=== PATIENT | male | born 1945 | race Caucasian/White ===

== ENCOUNTER → 2017-12-05 | Outpatient (CLI) | payer MEDICARE, OTHER ==
[~2017-12-05] MED LIST: ASPIRIN 32325 MG/TAB PO; ASPIRIN 81M81 MG/TA2 PO; ASPIRIN E.C. 8181 MG PO; ATOXIMETIN-B1 CAP PO; CARDURA1 MG PO; CARDURA4 MG PO; CHANTIX0.5 MG PO; CIPRO 500MG TA500 MG PO; FISH OIL1 IU PO; FISH OIL1 POW; FISH OIL1000 MG PO; FLAGYL500 MG PO; FLONASE NASAL S16 GM NS; LEXAPRO 5MG5 MG PO; LIPITOR 10MG10 MG PO; MONODOX100 PO; MULTIPLE VITAMI1 CAP PO; NORVASC 10MG10 MG PO; PLAVIX 75MG TAB75 MG PO; PRINIVIL10 MG PO; PROBIOTIC FORMU1 CAP PO; WELLBUTRIN SR150 M1 PO; WELLBUTRIN100 MG PO
== END ==
LOC: COL.CARD 08:23
DX: R03.0 Elevated blood-pressure reading, without diagnosis of hypertension (principal)

== ENCOUNTER 2018-06-30 09:23 | Emergency (ER) | payer MEDICARE, OTHER ==
[~2018-06-30] VITALS: Ht 180.3 cm; Wt 97.7 kg
[2018-06-30] MEDS ORDERED: FLOMAX 0.40.4 MG/CAP PO (09:36)
[2018-06-30] MEDS ORDERED: AREDS 2 PO (09:38)
[2018-06-30 10:05] VITALS: BP 149/79; PULSE 61; TEMP 97.9
== END 2018-06-30 10:06 | disposition home or self-care (01) ==
LOC: COL.ER 09:23
DX: S81.812A Laceration without foreign body, left lower leg, initial encounter (principal); I10 Essential (primary) hypertension; Z87.891 Personal history of nicotine dependence; Z79.82 Long term (current) use of aspirin; W20.8XXA Other cause of strike by thrown, projected or falling object, initial encounter

== ENCOUNTER → 2018-08-06 | Day surgery (SDC) | payer MEDICARE, OTHER ==
[~2018-08-06] MED LIST changes: +AREDS 2 PO; +FLOMAX 0.40.4 MG/CAP PO
== END ==
LOC: SDCO 07:13
DX: Z02.9 Encounter for administrative examinations, unspecified (principal)

== ENCOUNTER 2018-08-16 05:33 | Day surgery (SDC) | payer MEDICARE, OTHER ==
[~2018-08-16] VITALS: Ht 177.8 cm; Wt 98.5 kg
[2018-08-16] VITALS (12 sets, daily range): BP systolic 119–157; BP diastolic 52–78; PULSE 49–88; TEMP 97.7–98.2
[~2018-08-16 05:33] MED LIST changes: +FLONASEALLERGY NS; +LEXAPRO20 MG PO; +PROTONIX 40MG T40 MG PO
[2018-08-16] MEDS ORDERED: PRINIVIL20 MG PO (05:54)
[2018-08-16 06:18] LABS: BASO % 0.3 % (0.0-2.0); EOS # 0.1 (0.0-0.7); EOS % 1.9 % (0-4.0); GRAN # 1.9 (1.4-6.5); GRAN % 53.5 % (42.2-75.2); HEMATOCRIT 36.3 % (42.0-52.0); HEMOGLOBIN 11.9 g/dl (13.5-18.0); LYMPH # 1.2 (1.2-3.4); LYMPH % 34.1 % (20.0-51.0); MEAN CELL VOLUME 96 fl (80.0-100.0); MEAN CORPUSCULAR HEMOGLOBIN 31 pg (27.0-31.0); MEAN CORPUSCULAR HGB CONC 33 g/dl (33.0-37.0); MEAN PLATELET VOLUME 11.7 fl (7.4-10.4); MONO # 0.3 (0.1-0.6); MONO % 9.4 % (1.7-9.3); PLATELET COUNT 141 K/mm3 (130-400); REDCELL DISTRIBUTION WIDTH-CV 16.4 % (11.5-14.5)
[2018-08-17 04:08] VITALS: BP 128/75; PULSE 63; TEMP 98.2
[2018-08-17 07:22] VITALS: BP 155/84; PULSE 62; TEMP 97.8
[2018-08-17 12:04] VITALS: BP 167/79; PULSE 59; TEMP 97.1
[2018-08-17 12:44] VITALS: BP 148/72
== END 2018-08-17 15:20 | disposition home or self-care (01) ==
LOC: SDCO 05:33 → SURG 08:45 → SDCO 08-17 15:20
PROVIDERS: Urology
DX: N40.1 Benign prostatic hyperplasia with lower urinary tract symptoms (principal); R35.0 Frequency of micturition; R39.15 Urgency of urination; R39.12 Poor urinary stream; N32.0 Bladder-neck obstruction; I10 Essential (primary) hypertension; N39.43 Post-void dribbling; G47.33 Obstructive sleep apnea (adult) (pediatric); K21.9 Gastro-esophageal reflux disease without esophagitis; F41.9 Anxiety disorder, unspecified; M19.90 Unspecified osteoarthritis, unspecified site; Z79.82 Long term (current) use of aspirin; Z88.3 Allergy status to other anti-infective agents; Z88.0 Allergy status to penicillin; Z88.1 Allergy status to other antibiotic agents; Z91.041 Radiographic dye allergy status; Z87.891 Personal history of nicotine dependence; Z80.0 Family history of malignant neoplasm of digestive organs
CPT/HCPCS: OP; J0690; J1100; J2250; J2270; J2405; J2704; J3480; J7120